=== PATIENT | female | born 1965 | race Caucasian/White ===

== ENCOUNTER 2021-04-29 08:42 | Outpatient (CLI) | payer BC | END 2021-04-29 08:43 | disposition home or self-care (01) | LOC: CSHCT 08:42 | PROVIDERS: ATTEND Nurse Practitioner Adult Health | DX: R10.12 Left upper quadrant pain (principal); J43.9 Emphysema, unspecified; R91.1 Solitary pulmonary nodule; K44.9 Diaphragmatic hernia without obstruction or gangrene; N28.1 Cyst of kidney, acquired; K57.90 Diverticulosis of intestine, part unspecified, without perforation or abscess without bleeding | CPT/HCPCS: 74177; 82565 ==

== ENCOUNTER 2021-12-26 13:05 | Outpatient (CLI) | payer BC | END 2021-12-26 13:06 | disposition home or self-care (01) | LOC: CSHMAMMO 13:05 | PROVIDERS: ATTEND Nurse Practitioner Family | DX: R92.2 Inconclusive mammogram (principal); N60.02 Solitary cyst of left breast; N64.89 Other specified disorders of breast | CPT/HCPCS: G0279 ==